=== PATIENT | male | born 1985 | race Caucasian/White ===

== ENCOUNTER 2019-12-09 12:58 | Emergency (ER) | payer SELFPAY ==
[~2019-12-09] VITALS: Ht 170.2 cm; Wt 95.3 kg
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
--- NOTE | 2019-12-09 13:48 | NUR ---
Dr Contreras at bedside
--- NOTE | 2019-12-09 14:06 | NUR ---
Dr Tavera at bedside
--- NOTE | 2019-12-09 14:16 | NUR ---
CHARGE LPN AT BEDSIDE FOR XRAY.
[2019-12-09] MEDS ORDERED: IBUPROFEN 600 MG TABLET PO ONE ×2 (14:30→15:19)
[2019-12-09] MEDS ORDERED: oxyCODONE/APAP (5/325 MG) 1 UDTAB TABLET PO ONE (14:30)
--- NOTE | 2019-12-09 15:17 | NUR ---
BACK FROM CT SCAN
[2019-12-09] MEDS ORDERED: oxyCODONE/APAP (5/325 MG) 1 UDTAB TABLET ONE (15:19)
--- NOTE | 2019-12-09 16:21 | NUR ---
Patient discharged to home in stable condition. Written and verbal after care instructions given. Patient verbalizes understanding of instruction.
[2019-12-09 16:22] VITALS: BP 122/70
== END 2019-12-09 16:26 | disposition home or self-care (01) ==
LOC: ER 13:04
DX: S42.002A Fracture of unspecified part of left clavicle, initial encounter for closed fracture (principal); S00.01XA Abrasion of scalp, initial encounter; S50.312A Abrasion of left elbow, initial encounter; S40.212A Abrasion of left shoulder, initial encounter; R51 Headache; V19.9XXA Pedal cyclist (driver) (passenger) injured in unspecified traffic accident, initial encounter; Y93.I9 Activity, other involving external motion; Y92.488 Other paved roadways as the place of occurrence of the external cause; Y99.8 Other external cause status
CPT/HCPCS: 70450-TC; 73000-TC; 73030-TC